=== PATIENT | female | born 1955 | race Caucasian/White ===

== ENCOUNTER 2016-12-22 11:40 | Emergency (ER) | payer MEDICARE, BC ==
[2016-12-22 11:50] VITALS: TEMP 98.4
[2016-12-22] MEDS ORDERED: KETOROLAC 30 MG/ML 1 ML VIAL IVP STA (11:54)
[2016-12-22 12:14] LABS: Basophils # (A) 0.1 k/uL (0-0.2); Basophils % (A) 1 %; CH 28.9; CHCM 33.3; Eosinophils # (A) 0.1 k/uL (0-0.7); Eosinophils % (A) 2 %; HCT 42.3 % (34.0-46.0); HDW 2.46; HGB 14.6 gm/dL (11.4-16.0); Luc # (Auto) 0.16; Luc % (Auto) 3; Lymphocytes # (A) 1.8 k/uL (1.0-4.8); Lymphocytes % (A) 29 %; MCH 30.2 pg (25.0-35.0); MCHC 34.7 g/dL (31.0-37.0); MCV 87.3 fL (80.0-100.0); Mean Platelet Volume 7.3; Monocytes # (A) 0.3 k/uL (0-1.0); Monocytes % (A) 5 %; Neutrophils # (A) 3.8 k/uL (1.3-7.7); Neutrophils % (A) 61 %; RBC 4.84 m/uL (3.80-5.40); RDW 12.8 % (11.5-15.5); WBC 6.3 k/uL (3.8-10.6)
--- NOTE | 2016-12-22 12:15 | XR ---
EXAMINATION TYPE: XR chest 2V DATE OF EXAM: 12/22/2016 COMPARISON: 06/11/2013 HISTORY: Left lateral chest pain and mid axillary pain. Stabbing in nature. TECHNIQUE: Frontal and lateral views of the chest are obtained. FINDINGS: There is no focal air space opacity, pleural effusion, or pneumothorax seen. The cardiac silhouette size is within normal limits. The osseous structures are intact. Mild degenerative marshall es of the thoracic spine are noted, similar in degree to the prior exam with partial visualization of the lumbar fusion. IMPRESSION: No acute cardiopulmonary process.
[2016-12-22 12:17] LABS: ALT 34 U/L (9-52); AST 27 U/L (14-36); Alkaline Phosphatase 89 U/L (38-126); Anion Gap 12 mmol/L; Blood Urea Nitrogen 13 mg/dL (7-17); Calcium 9.5 mg/dL (8.4-10.2); Carbon Dioxide 25 mmol/L (22-30); Chloride 107 mmol/L (98-107); Glucose 109 mg/dL (74-99); Non-African American GFR(MDRD) >60 (>60 ml/min/1.73 sqM); Potassium 4.2 mmol/L (3.5-5.1); Sodium 144 mmol/L (137-145); Total Bilirubin 0.5 mg/dL (0.2-1.3); Total Protein 7.5 g/dL (6.3-8.2)
[2016-12-22 12:23] LABS: Prothrombin Time 10.3 sec (9.0-12.0)
[2016-12-22 12:24] LABS: Partial Thromboplastin Time 22.5 sec (22.0-30.0)
--- NOTE | 2016-12-22 12:38 | ED ---
Chest Pain HPI - General Chief Complaint: Chest Pain Stated Complaint: Chest pains/nausea Time Seen by Provider: 12/22/16 11:44 Source: patient, RN notes reviewed Mode of arrival: wheelchair Limitations: no limitations - History of Present Illness Initial Comments: Is a 61-year-old female who states she had the onset of chest pain earlier this morning. She states it started about 4 AM less sided chest pain is sharp 8/10 severity not associated with any fevers chills nausea vomiting sweats she has chronic back pain she states she has not been lifting anything heavy she points to just lateral and beneath her left breast is a area pain. He does seen her when she pushes on it. MD Complaint: chest pain - Related Data Home Medications Medication Instructions Recorded Confirmed Ibuprofen [Motrin] 400 mg PO Q6HR PRN 12/22/16 12/22/16 Previous Rx's Medication Instructions Recorded Cyclobenzaprine [Flexeril] 10 mg PO TID #14 tab 12/22/16 Ibuprofen 800 mg PO Q6HR PRN #20 tablet 12/22/16 Allergies Allergy/AdvReac Type Severity Reaction Status Date / Time No Known Allergies Allergy Verified 12/22/16 12:18 Review of Systems ROS Statement: Those systems with pertinent positive or pertinent negative responses have been documented in the HPI. ROS Other: All systems not noted in ROS Statement are negative. EKG Findings - EKG Results: EKG: interpreted by SHARLA, sinus rhythm (Normal sinus rhythm rate of 86. Interval 120 QRS duration 80 QT since QTC of 464/[address]-T wave changes nonspecific anterior configuration.) Past Medical History Past Medical History: Mitral Valve Prolapse (MVP) History of Any Multi-Drug Resistant Organisms: None Reported Past Surgical History: No Surgical Hx Reported Past Psychological History: No Psychological Hx Reported Smoking Status: Never smoker Past Alcohol Use History: None Reported Past Drug Use History: None Reported General Exam - General Exam Comments Initial Comments: This is a well-developed well-nourished awake alert oriented 3 female Limitations: no limitations General appearance: alert, anxious Head exam: Present: atraumatic, normocephalic, normal inspection Eye exam: Present: normal appearance, PERRL, EOMI. Absent: scleral icterus, conjunctival injection, periorbital swelling ENT exam: Present: normal exam, mucous membranes moist Neck exam: Present: normal inspection. Absent: tenderness, meningismus, lymphadenopathy Respiratory exam: Present: normal lung sounds bilaterally, chest wall tenderness (Reproducible tenderness palpation over left lateral costal chondral margin at the level of the breast.). Absent: respiratory distress, wheezes, rales, rhonchi, stridor Cardiovascular Exam: Present: regular rate, normal rhythm, normal heart sounds. Absent: systolic murmur, diastolic murmur, rubs, gallop, clicks GI/Abdominal exam: Present: soft, normal bowel sounds. Absent: distended, tenderness, guarding, rebound, rigid Extremities exam: Present: normal inspection, full ROM, normal capillary refill. Absent: tenderness, pedal edema, joint swelling, calf tenderness Back exam: Present: normal inspection Neurological exam: Present: alert, oriented X3, CN II-XII intact Psychiatric exam: Present: normal affect, normal mood Skin exam: Present: warm, dry, intact, normal color. Absent: rash Course Vital Signs 12/22/16 12/22/16 12/22/16 11:48 11:53 12:16 Temperature 98.4 F Pulse Rate 84 75 85 Respiratory 18 18 20 Rate Blood Pressure 141/81 154/85 O2 Sat by Pulse 94 L 98 97 Oximetry Chest Pain MDM - MDM Imaging shows no acute findings. I did discuss the findings with the patient she is feeling improved the presentation is consistent with costochondritis. Patient will be discharged she'll be placed on anti-inflammatories. Disposition Clinical Impression: Chest wall syndrome, Costalchondritis Disposition: HOME SELF-CARE Condition: Good Instructions: Costochondritis (ED) Prescriptions: Cyclobenzaprine [Flexeril] 10 mg PO TID #14 tab Ibuprofen 800 mg PO Q6HR PRN #20 tablet PRN Reason: Pain Referrals: Richard Aguayo MD [Primary Care Provider] - 1-2 days
[2016-12-22 12:44] LABS: Creatine Kinase 74 U/L (30-135)
[2016-12-22 12:58] LABS: Creatine Kinase MB 1.1 ng/mL (0.0-2.4); Troponin I <0.012 ng/mL (0.000-0.034)
[2016-12-22 13:38] VITALS: BP 131/68; PULSE 77; RESP 18
== END 2016-12-22 13:37 | disposition home or self-care (01) ==
LOC: EC 11:40
DX: M94.0 Chondrocostal junction syndrome [Tietze] (principal); I34.1 Nonrheumatic mitral (valve) prolapse
CPT/HCPCS: 99285; 96374; 36415; 93005; 85379; 80053; 82550; 82553; 83735; 84484; 85025; 85610; 85730; 71020; J1885

== ENCOUNTER → 2017-09-05 | Outpatient (CLI) | payer BC, MEDICARE ==
--- NOTE | 2017-09-06 10:48 | MM ---
Reason for exam: screening (asymptomatic). Last mammogram was performed 1 year and 7 months ago. History: Patient is postmenopausal. Family history of breast cancer in maternal grandmother and breast cancer in sister at age 53. Benign US right guided VAD of the right breast, May 07, 2010. Took hormonal contraceptives beginning at age 22. Physical Findings: A clinical breast exam by your physician is recommended on an annual basis and results should be correlated with mammographic findings. MG 3D Screening Mammo W/Cad Bilateral CC and MLO view(s) were taken. Prior study comparison: February 20, 2016, bilateral MG 3d screening mammo w/cad. February 10, 2015, bilateral MG screening mammo w CAD. The breast tissue is heterogeneously dense. This may lower the sensitivity of mammography. No suspicious abnormality. Inferior right breast asymmetry appears stable from 2014. No significant changes when compared with prior studies. ASSESSMENT: Benign, BI-RAD 2 RECOMMENDATION: Routine screening mammogram of both breasts in 1 year.
== END | disposition home or self-care (01) ==
LOC: RADMAMWWP 12:19
PROVIDERS: ATTEND Obstetrics & Gynecology
DX: Z12.31 Encounter for screening mammogram for malignant neoplasm of breast (principal)
CPT/HCPCS: 77063; 77067

== ENCOUNTER 2017-09-27 12:28 | Day surgery (SDC) | payer BC, MEDICARE ==
[2017-09-23 11:36] VITALS: BMI 29.9
[~2017-09-27 12:28] MED LIST: LACTATED RINGERS 1,000 ML IV SCH
[2017-09-27 12:59] VITALS: TEMP 97.2
[2017-09-27] MEDS ORDERED: PROPOFOL 10 MG/ML 20 ML VIAL IV ONE (14:00)
--- NOTE | 2017-09-27 14:31 | P.PCN ---
Date of Procedure: 09/27/17 Procedure(s) Performed: Procedure: Total colonoscopy. Preoperative diagnosis: Screening for neoplasia. Postoperative diagnosis: Sigmoid diverticulosis with no evidence of acute diverticulitis, strictures, polyps or cancer. Preparation: HalfLytely prep. Sedation: Was provided by anesthesia. Brief clinical history: The patient is a 62-year-old female who is scheduled for this evaluation for screening for neoplasia. She had a prior exam in 2001. She has no abdominal complaints, bleeding or anemia. Procedure: With the patient on her left lateral decubitus position and after informed consent and adequate sedation, the perianal area was inspected and it did not show any fissures or fistulas. There were no masses felt on digital rectal examination. The Olympus CF Q160 L videocolonoscope was then inserted in the rectum in the usual fashion and advanced without difficulty in the sigmoid and then all the way to the cecum. There was multiple diverticular orifices seen scattered in the sigmoid with no evidence of acute diverticulitis or strictures. No polyps or tumors were seen. The mucosa appeared healthy. I retroflexed the endoscope in the rectum before the endoscope was withdrawn. The patient tolerated the procedure well. Plan: The patient was reassured. Discussed dietary measures. She will follow- up with you as planned and I recommended repeat exam in 10 years.
[2017-09-27 14:37] VITALS: RESP 20
[2017-09-27 15:02] VITALS: BP 108/67; PULSE 70
== END 2017-09-27 15:22 | disposition home or self-care (01) ==
LOC: ORWHC2ENDO 12:28
DX: Z12.11 Encounter for screening for malignant neoplasm of colon (principal); I34.1 Nonrheumatic mitral (valve) prolapse; K57.30 Diverticulosis of large intestine without perforation or abscess without bleeding
CPT/HCPCS: J2704; G0121

== ENCOUNTER → 2018-09-08 | Outpatient (CLI) | payer BC, MEDICARE ==
--- NOTE | 2018-09-12 13:49 | MM ---
Reason for exam: screening (asymptomatic). Last mammogram was performed 1 year ago. History: Patient is postmenopausal. Family history of breast cancer in maternal grandmother and breast cancer in sister at age 53. Benign US right guided VAD of the right breast, May 07, 2010. Took hormonal contraceptives beginning at age 22. Physical Findings: A clinical breast exam by your physician is recommended on an annual basis and results should be correlated with mammographic findings. MG 3D Screening Mammo W/Cad Bilateral CC and MLO view(s) were taken. Prior study comparison: September 05, 2017, bilateral MG 3d screening mammo w/cad. February 20, 2016, bilateral MG 3d screening mammo w/cad. The breast tissue is heterogeneously dense. This may lower the sensitivity of mammography. Previous mammotome biopsy in the right breast. No significant changes when compared with prior studies. ASSESSMENT: Benign, BI-RAD 2 RECOMMENDATION: Routine screening mammogram of both breasts in 1 year.
== END | disposition home or self-care (01) ==
LOC: RADMAMWWP 08:07
PROVIDERS: ATTEND Obstetrics & Gynecology
DX: Z12.31 Encounter for screening mammogram for malignant neoplasm of breast (principal); Z80.3 Family history of malignant neoplasm of breast
CPT/HCPCS: 77063; 77067

== ENCOUNTER 2019-02-13 17:31 | Observation (INO) | payer MEDICARE, BC ==
[2019-02-13] MEDS ORDERED: ASPIRIN 81 MG PO STA (18:30)
[2019-02-13] MEDS ORDERED: ACETAMINOPHEN TAB 325 MG TAB PO STA (18:42)
--- NOTE | 2019-02-13 18:43 | ED ---
Chest Pain HPI - General Chief Complaint: Chest Pain Stated Complaint: CHEST PAIN Time Seen by Provider: 02/13/19 18:30 Source: patient, RN notes reviewed Mode of arrival: ambulatory Limitations: no limitations - History of Present Illness Initial Comments: 64-year-old female presents emergency Department chief complaint chest pain. Patient states symptoms started around 2:00 this afternoon. Patient states started left-sided or chest pain she had some left arm numbness. Patient also complains of a headache and left sided neck pain at this time. Patient states that she forgot her brother today states that she is very stressed. She denies any prior cardiac disease including hypertension, hyperlipidemia diabetes any lung disease. Patient has strong family cardiac history. Patient has Augmentin nausea vomiting. Patient was referred to the emergency Department from urgent care. - Related Data Home Medications Medication Instructions Recorded Confirmed Ascorbic Acid [Vitamin C] 500 mg PO HS 02/13/19 02/13/19 Cholecalciferol [Vitamin D3 (25 1,000 unit PO HS 02/13/19 02/13/19 Mcg = 1000 Iu)] Cider Vinegar [Apple Cider Vinegar] 600 mg PO HS 02/13/19 02/13/19 Magnesium Oxide [Dyer] 500 mg PO HS 02/13/19 02/13/19 Nmn Pure 1 tab PO HS 02/13/19 02/13/19 [place]-3 Fatty Acids [[place]-3] 1,000 mg PO HS 02/13/19 02/13/19 Phytonadione [Vitamin K] 5 mg PO HS 02/13/19 02/13/19 Potassium 99 mg PO HS 02/13/19 02/13/19 Protandim 1 tab PO HS 02/13/19 02/13/19 Resveratrol 100 mg PO HS 02/13/19 02/13/19 Turmeric Root Extract [Turmeric] 500 mg PO HS 02/13/19 02/13/19 Vitamin B Complex 1 cap PO HS 02/13/19 02/13/19 Vitamin E 100 unit PO HS 02/13/19 02/13/19 Allergies Allergy/AdvReac Type Severity Reaction Status Date / Time No Known Allergies Allergy Verified 02/13/19 19:31 Review of Systems ROS Statement: Those systems with pertinent positive or pertinent negative responses have been documented in the HPI. ROS Other: All systems not noted in ROS Statement are negative. Past Medical History Past Medical History: Mitral Valve Prolapse (MVP) History of Any Multi-Drug Resistant Organisms: None Reported Past Surgical History: Back Surgery Additional Past Surgical History / Comment(s): OVARIAN CYSTECTOMY. LT WRIST CYSTECTOMY. COLONOSCOPY. BILAT CATARACTS REMOVED Past Anesthesia/Blood Transfusion Reactions: No Reported Reaction Past Psychological History: No Psychological Hx Reported Smoking Status: Never smoker Past Alcohol Use History: Rare Past Drug Use History: None Reported - Past Family History Sister(s) Family Medical History: Cancer General Exam Limitations: no limitations General appearance: alert, in no apparent distress Head exam: Present: atraumatic, normocephalic, normal inspection Eye exam: Present: normal appearance, PERRL, EOMI. Absent: scleral icterus, conjunctival injection, periorbital swelling ENT exam: Present: normal exam, normal oropharynx, mucous membranes moist Neck exam: Present: normal inspection, full ROM. Absent: tenderness, meningismus, lymphadenopathy Respiratory exam: Present: normal lung sounds bilaterally. Absent: respiratory distress, wheezes, rales, rhonchi, stridor Cardiovascular Exam: Present: regular rate, normal rhythm, normal heart sounds. Absent: systolic murmur, diastolic murmur, rubs, gallop, clicks Back exam: Absent: CVA tenderness (R), CVA tenderness (L) Neurological exam: Present: alert, oriented X3 Skin exam: Present: warm, dry, intact, normal color. Absent: rash Course Vital Signs 02/13/19 17:39 Temperature 98.7 F Pulse Rate 85 Respiratory 17 Rate Blood Pressure 148/88 O2 Sat by Pulse 98 Oximetry Chest Pain MDM - [facility] Laboratory unremarkable at this time. Patient states is consistent with cardiac disease. Patient will be admitted for cardiology evaluation, repeat troponin, heparin. Disposition Clinical Impression: Chest pain Disposition: ADMITTED IP TO THIS HOSP Condition: Fair Referrals: Richard Aguayo MD [Primary Care Provider] - 1-2 days
[2019-02-13 18:50] LABS: Basophils # (A) 0.1 k/uL (0-0.2); Basophils % (A) 1 %; Eosinophils # (A) 0.1 k/uL (0-0.7); Eosinophils % (A) 1 %; HCT 40.9 % (34.0-46.0); HGB 13.4 gm/dL (11.4-16.0); Lymphocytes # (A) 1.7 k/uL (1.0-4.8); Lymphocytes % (A) 22 %; MCH 30.3 pg (25.0-35.0); MCHC 32.8 g/dL (31.0-37.0); MCV 92.1 fL (80.0-100.0); Mean Platelet Volume 7.2; Monocytes # (A) 0.3 k/uL (0-1.0); Monocytes % (A) 4 %; Neutrophils # (A) 5.3 k/uL (1.3-7.7); Neutrophils % (A) 70 %; Platelet Count 234 k/uL (150-450); RBC 4.44 m/uL (3.80-5.40); RDW 13.2 % (11.5-15.5); WBC 7.6 k/uL (3.8-10.6)
[2019-02-13 19:08] LABS: ALT 26 U/L (9-52); AST 22 U/L (14-36); African American GFR (CKD) >90 (>60 ml/min/1.73 sqM); Albumin 4.4 g/dL (3.5-5.0); Alkaline Phosphatase 89 U/L (38-126); Anion Gap 9 mmol/L; Blood Urea Nitrogen 19 mg/dL (7-17); Calcium 9.5 mg/dL (8.4-10.2); Carbon Dioxide 24 mmol/L (22-30); Chloride 108 mmol/L (98-107); Glucose 102 mg/dL (74-99); Non-African American GFR(CKD) >90 (>60 ml/min/1.73 sqM); Potassium 4.2 mmol/L (3.5-5.1); Sodium 141 mmol/L (137-145); Total Bilirubin 0.3 mg/dL (0.2-1.3); Total Protein 7.2 g/dL (6.3-8.2)
--- NOTE | 2019-02-13 20:46 | XR ---
EXAMINATION TYPE: XR chest 2V DATE OF EXAM: 02/13/2019 COMPARISON: 12/22/2016 HISTORY: Left side pain TECHNIQUE: Frontal and lateral views of the chest are obtained. FINDINGS: Heart and mediastinum are normal. Lungs are clear. Diaphragm is normal. Bony thorax appear s normal. There are chest leads. IMPRESSION: Normal chest. No change.
[2019-02-13] MEDS ORDERED: NITROGLYCERIN SL TABS 0.4 MG TAB SUBLINGUAL PRN (21:05)
[2019-02-13] MEDS ORDERED: HEPARIN SODIUM,PORCINE 5,000 UNIT/ML 1 ML VIAL IV ONE (21:05)
[2019-02-13] MEDS ORDERED: HEPARIN SOD,PORK IN 0.45% NACL 25,000 UNIT in 0.45% NACL 1 250ML.BAG IV SCH (21:15)
[2019-02-13] MEDS ORDERED: MORPHINE SULFATE 4 MG/ML SYRINGE IVP STA (21:38)
[2019-02-13] MEDS ORDERED: ONDANSETRON 4 MG/2 ML VIAL IVP STA (21:38)
[2019-02-13 22:09] LABS: INR 0.9 (<1.2); Partial Thromboplastin Time 22.1 sec (22.0-30.0); Prothrombin Time 9.5 sec (9.0-12.0)
[2019-02-13] MEDS ORDERED: ONDANSETRON 4 MG/2 ML VIAL IVP PRN (22:39)
[2019-02-14 05:55] LABS: Mean Platelet Volume 6.3; Platelet Count 228 k/uL (150-450)
[2019-02-14 06:05] LABS: Cholesterol 193 mg/dL (<200); HDL Cholesterol 51 mg/dL (40-60); LDL Cholesterol,Calculated 122 mg/dL (0-99); Triglycerides 102 mg/dL (<150)
[2019-02-14 07:24] VITALS: BP 112/78; PULSE 71; RESP 16; TEMP 98
[2019-02-14] MEDS ORDERED: ASPIRIN 325 MG TAB PO SCH (09:00)
--- NOTE | 2019-02-14 09:42 | P.CRDCN ---
History of Present Illness History of present illness: This is a pleasant 64-year-old female with no significant previous past medical history. She denies prior history of coronary artery disease, hypertension, dyslipidemia or diabetes mellitus. 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 We have been asked to see her in consultation secondary to chest discomfort. She states yesterday afternoon she heard some bad news from a family member and shortly thereafter she developed a tight sensation in the left precordial region with radiation down the left arm and into the left neck. She denies associated shortness of breath, dizziness, nausea, vomiting, diaphoresis or palpitations. She checked her blood pressure at home and it was quite elevated around 180 systolic. She then started having a headache. This all started around 1430. She came to the hospital with ongoing chest discomfort that slowly started to subside on its own around 8 PM. She is seen and examined resting comfortably in bed laying flat in no acute distress. She still feels a vague tight sensation in the left preco rdial region however her arm discomfort, neck discomfort and headache has subsided. EKG reveals sinus mechanism with no acute ST or T wave abnormalities noted. Chest x-ray is negative for an acute cardiopulmonary process. Laboratory data reviewed, cardiac enzymes negative 3, CBC unremarkable, sodium 141, potassium 4.2, creatinine 0.61, LDL 122. She takes no daily cardiac medications. At the time of my exam: CONSTITUTIONAL: Denies fever. Denies chills. EYES: Denies blurred vision. Denies vision changes. Denies eye pain. EARS, NOSE, MOUTH & THROAT: Denies headache. Denies sore throat. Denies ear pain. CARDIOVASCULAR: Denies chest pain. Denies shortness of breath. Denies orthopnea. Denies PND. Denies palpitations. RESPIRATORY: Denies cough. GASTROINTESTINAL: Denies abdominal pain. Denies diarrhea. Denies constipation. Denies nausea. Denies vomiting. MUSCULOSKELETAL: Denies myalgias. INTEGUMENTARY: Denies pruitis. Denies rash. NEUROLOGIC: Denies numbness. Denies tingling. Denies weakness. PSYCHIATRIC: Denies anxiety. Denies depression. ENDOCRINE: Denies fatigue. Denies weight change. Denies polydipsia. Denies polyurina. GENITOURINARY: Denies burning, hematuria or urgency with micturation. HEMATOLOGIC: Denies history of anemia. Denies bleeding. Blood pressure 112/78 heart rate 71 afebrile maintaining oxygen saturation on room air GENERAL: This is a 64-year-old female in no apparent distress at the time of my examination. HEENT: Head is atraumatic, normocephalic. Pupils are equal, round. Sclerae anicteric. Conjunctivae are clear. Mucous membranes of the mouth are moist. Neck is supple. There is no jugular venous distention. No carotid bruit is heard. LUNGS: Clear to auscultation no wheezes, rales or rhonchi. No chest wall tenderness is noted on palpation or with deep breathing. HEART: Regular rate and rhythm without murmurs, rubs or gallops. S1 and S2 heard . ABDOMEN: Soft, nontender. Bowel sounds are heard. No organomegaly noted. EXTREMITIES: No evidence of peripheral edema and no calf tenderness noted. VASCULAR: Radial and dorsalis pedis pulses palpated, no evidence of clubbing. NEUROLOGIC: Patient is awake, alert and oriented x3. ASSESSMENT Chest pain. An acute coronary event has been ruled out. Transient hypertension Dyslipidemia Obesity, BMI 29 Family history of premature coronary artery disease in brother PLAN An acute coronary event has been ruled out with no EKG evidence of ischemia and negative cardiac enzymes. Obtain 2-D echocardiogram and Doppler study to assess cardiac structure and function. If echocardiogram is normal we will proceed with a stress echocardiogram to assess for stress-induced ischemia. Stress test is normal she may be discharged from a cardiac perspective. Recommend lifestyle modifications for lowering of LDL cholesterol. Thank you kindly for this consultation. Nurse Practitioner note has been reviewed, I agree with a documented findings and plan of care. Patient was seen and examined. Past Medical History Past Medical History: Mitral Valve Prolapse (MVP) History of Any Multi-Drug Resistant Organisms: None Reported Past Surgical History: Back Surgery Additional Past Surgical History / Comment(s): OVARIAN CYSTECTOMY. LT WRIST CYSTECTOMY. COLONOSCOPY. BILAT CATARACTS REMOVED with lens. spinal fusion Past Anesthesia/Blood Transfusion Reactions: No Reported Reaction Past Psychological History: No Psychological Hx Reported Smoking Status: Never smoker Past Alcohol Use History: Rare Past Drug Use History: None Reported - Past Family History Sister(s) Family Medical History: Cancer Medications and Allergies Home Medications Medication Instructions Recorded Confirmed Type Ascorbic Acid [Vitamin C] 500 mg PO HS 02/13/19 02/13/19 History Cholecalciferol [Vitamin D3 (25 1,000 unit PO HS 02/13/19 02/13/19 History Mcg = 1000 Iu)] Cider Vinegar [Apple Cider Vinegar] 600 mg PO HS 02/13/19 02/13/19 History Magnesium Oxide [[place]yer] 500 mg PO HS 02/13/19 02/13/19 History Nmn Pure 1 tab PO HS 02/13/19 02/13/19 History [place]-3 Fatty Acids [[place]-3] 1,000 mg PO HS 02/13/19 02/13/19 History Phytonadione [Vitamin K] 5 mg PO HS 02/13/19 02/13/19 History Potassium 99 mg PO HS 02/13/19 02/13/19 History Protandim 1 tab PO HS 02/13/19 02/13/19 History Resveratrol 100 mg PO HS 02/13/19 02/13/19 History Turmeric Root Extract [Turmeric] 500 mg PO HS 02/13/19 02/13/19 History Vitamin B Complex 1 cap PO HS 02/13/19 02/13/19 History Vitamin E 100 unit PO HS 02/13/19 02/13/19 History Allergies Allergy/AdvReac Type Severity Reaction Status Date / Time No Known Allergies Allergy Verified 02/13/19 19:31 Physical Exam Vitals: Vital Signs Temp Pulse Pulse Resp BP BP Pulse Ox 02/14/19 07:23 98 F 71 16 112/78 99 02/14/19 04:19 80 18 127/64 96 02/13/19 23:16 97.6 F 77 18 155/80 95 02/13/19 22:30 78 21 152/94 02/13/19 21:40 70 18 128/79 02/13/19 20:20 68 18 130/82 96 02/13/19 19:40 68 20 165/93 97 02/13/19 17:39 98.7 F 85 17 148/88 98 Intake and Output 02/13/19 02/14/19 02/14/19 22:59 06:59 14:59 Other: # Voids 1 Weight 79.832 kg Results 02/14/19 05:34 02/13/19 18:03 Cardiac Enzymes 02/13/19 02/13/1902/13/19 Range/Units 18:03 18:03 21:00 AST 22 (14-36) U/L Troponin I <0.012 <0.012 (0.000-0.034) ng/mL 02/14/19 Range/Units 05:34 AST (14-36) U/L Troponin I <0.012 (0.000-0.034) ng/mL Coagulation 02/13/19 02/14/19 02/14/19 Range/Units 21:00 03:57 05:34 PT 9.5 (9.0-12.0) sec APTT 22.1 75.0 H 67.4 H (22.0-30.0) sec Lipids 02/14/19 Range/Units 05:34 Triglycerides 102 (<150) mg/dL Cholesterol 193 (<200) mg/dL HDL Cholesterol 51 (40-60) mg/dL CBC 02/13/19 02/14/19 Range/Units 18:03 05:34 WBC 7.6 (3.8-10.6) k/uL RBC 4.44 (3.80-5.40) m/uL Hgb 13.4 (11.4-16.0) gm/dL Hct 40.9 (34.0-46.0) % Plt Count 234 228 (150-450) k/uL Comprehensive Metabolic Panel 02/13/19 Range/Units 18:03 Sodium 141 (137-145) mmol/L Potassium 4.2 (3.5-5.1) mmol/L Chloride 108 H (98-107) mmol/L Carbon Dioxide 24 (22-30) mmol/L BUN 19 H (7-17) mg/dL Creatinine 0.61 (0.52-1.04) mg/dL Glucose 102 H (74-99) mg/dL Calcium 9.5 (8.4-10.2) mg/dL AST 22 (14-36) U/L ALT 26 (9-52) U/L Alkaline Phosphatase 89 (38-126) U/L Total Protein 7.2 (6.3-8.2) g/dL Albumin 4.4 (3.5-5.0) g/dL Current Medications Generic Name Dose Route Start Last Admin Trade Name Freq PRN Reason Stop Dose Admin Ascorbic Acid 500 mg 02/14/19 21:00 Vitamin C PO HS [facility] Aspirin 325 mg 02/14/19 09:00 Aspirin PO DAILY [facility] Cholecalciferol 1,000 unit 02/14/19 21:00 Vitamin D3 (25 Mcg = 1000 Iu) PO HS DESIRAE Heparin Sodium/Sodium Chloride 250 mls @ 9.58 mls/hr 02/13/19 21:15 02/13/19 22:23 25,000 unit/ Sodium Chloride IV 12 units/kg/hr .Q24H DESIRAE 9.58 mls/hr Administration Protocol 12 UNITS/KG/HR Nitroglycerin 0.4 mg 02/13/19 21:05 Nitrostat SUBLINGUAL Q5M PRN Chest Pain Ondansetron HCl 4 mg 02/13/19 22:39 Zofran IVP Q6HR PRN Nausea And Vomiting Intake and Output 02/13/19 02/14/19 02/14/19 22:59 06:59 14:59 Other: # Voids 1 Weight 79.832 kg 02/14/19 05:34 02/13/19 18:03
--- NOTE | 2019-02-14 09:53 | ECHOF ---
Referral Reason:chest pain MEASUREMENTS -------- HEIGHT: 165.1 cm WEIGHT: 79.8 kg BP: 127/64 RVIDd: 2.7 cm (< 3.3) IVSd: 1.0 cm (0.6 - 1.1) LVIDd: 4.3 cm (3.9 - 5.3) LVPWd: 1.0 cm (0.6 - 1.1) IVSs: 1.7 cm LVIDs: 2.9 cm LVPWs: 1.5 cm LA Diam: 3.3 cm (2.7 - 3.8) LAESV Index (A-L): 23.40 ml/m Ao Diam: 2.8 cm (2.0 - 3.7) AV Cusp: 2.4 cm (1.5 - 2.6) MV EXCURSION: 13.536 mm (> 18.000) MV EF SLOPE: 86 mm/s (70 - 150) EPSS: 0.3 cm MV E Toño: 0.94 m/s MV DecT: 202 ms MV A Toño: 0.67 m/s MV E/A Ratio: 1.41 RAP: 5.00 mmHg RVSP: 23.58 mmHg TAPSE: 19.20 mm FINDINGS -------- Sinus rhythm. This was a technically good study. The left ventricular size is normal. Left ventricular wall thickness is normal. Overall left vent ricular systolic function is normal with, an EF between 60 - 65 %. The diastolic filling pattern is normal for the age of the patient 10.27. The right ventricle is normal in size. Normal LA size by volume 22+/-6 ml/m2. The right atrium is normal in size. Interatrial and interventricular septum intact. Aortic valve is trileaflet and is mildly thickened. Mild mitral regurgitation is present. Mild tricuspid regurgitation present. Right ventricular systolic pressure is normal at < 35 mmHg. Trace/mild (physiologic) pulmonic regurgitation. The aortic root size is normal. Normal inferior vena cava with normal inspiratory collapse consistent with estimated right atrial pre ssure of 5 mmHg. There is no pericardial effusion. CONCLUSIONS -------- 1. Sinus rhythm. 2. This was a technically good study. 3. The left ventricular size is normal. 4. Left ventricular wall thickness is normal. 5. Overall left ventricular systolic function is normal with, an EF between 60 - 65 %. 6. The diastolic filling pattern is normal for the age of the patient 10.27 7. The right ventricle is normal in size. 8. Normal LA size by volume 22+/-6 ml/m2. 9. The right atrium is normal in size. 10. Interatrial and interventricular septum intact. 11. Aortic valve is trileaflet and is mildly thickened. 12. Mild mitral regurgitation is present. 13. Mild tricuspid regurgitation present. 14. Right ventricular systolic pressure is normal at < 35 mmHg. 15. Trace/mild (physiologic) pulmonic regurgitation. 16. The aortic root size is normal. 17. Normal inferior vena cava with normal inspiratory collapse consistent with estimated right atrial pressure of 5 mmHg. 18. There is no pericardial effusion. NUCLEAR LICENSING ENGINEER: Yasmine Corbett RDCS
--- NOTE | 2019-02-14 12:50 | P.STRESS ---
- Stress Test Note Stress Test Results/Findings: Exam Performed: stress echo exercise Exam Date: 02/14/19 Reason for Exam: CP Height: 5 ft 5 in Weight: 79.832 kg Protocol: STRESS ECHO Stage: 3 Duration of Exercise: 6:15 Resting Heart Rate: 90 Resting Blood Pressure: 138/68 Maximum Achieved Heart Rate: 144 Maximum Achieved Blood Pressure: 194/71 85% PMHR: 134 100% PMHR: 158 METS: 7.5 Technologist Comment: Stress Test Results/Findings: This is a 64-year-old female being evaluated for symptoms of chest pain and palpitations. Stress data: Baseline EKG showed a sinus rhythm with normal MD interval and QRS duration. Blood pressure at rest is 138/64, pulse rate of 90. Patient walked on the Saroj protocol for 6 minutes and 15 seconds achieving a maximum heart rate of 144 with a blood pressure of 1 9471. EKGs taken during and after the x- ray did not reveal any significant changes from the baseline. Echo data: Baseline echo images show normal wall motion and thickening. Exercise echo images showed augmentation of the wall motion and thickening in all segments. Final impression: #1. Negative stress test #2. Negative stress echo.
[2019-02-14] MEDS ORDERED: VITAMIN E 100 UNIT PO SCH (21:00)
[2019-02-14] MEDS ORDERED: NON FORMULARY DRUG (Potassium [Potassium] 99 MG) PO SCH (21:00)
[2019-02-14] MEDS ORDERED: NON FORMULARY DRUG (Vitamin B Complex [Vitamin B Complex] 1 CAP) PO SCH (21:00)
[2019-02-14] MEDS ORDERED: PROTANDIM PO SCH (21:00)
[2019-02-14] MEDS ORDERED: RESVERATROL 100 MG PO SCH (21:00)
[2019-02-14] MEDS ORDERED: CHOLECALCIFEROL 1,000 UNIT TAB PO SCH (21:00)
[2019-02-14] MEDS ORDERED: NON FORMULARY DRUG (Omega-3 Fatty Acids [Omega-3] 1,000 MG) PO SCH (21:00)
[2019-02-14] MEDS ORDERED: PHYTONADIONE 5 MG PO SCH (21:00)
[2019-02-14] MEDS ORDERED: ASCORBIC ACID 500 MG TAB PO SCH (21:00)
[2019-02-14] MEDS ORDERED: NON FORMULARY DRUG (Turmeric Root Extract [Turmeric] 500 MG) PO SCH (21:00)
[2019-02-14] MEDS ORDERED: NON FORMULARY DRUG (Magnesium Oxide [Phillips] 500 MG) PO SCH (21:00)
[2019-02-14] MEDS ORDERED: CIDER VINEGAR PO SCH (21:00)
[2019-02-14] MEDS ORDERED: [UNRECOGNIZED DRUG - OTHER] PO SCH (21:00)
--- NOTE | 2019-02-14 22:35 | P.HPIM ---
History of Present Illness H&P Date: 02/14/19 Chief Complaint: chest pain History of presenting complaint: This is a very pleasant 64-year-old patient of Dr. Aguayo. History patient on the nose and a brother, with suicide in [place]. The new straightly alarmed her. Started having chest pain going up to the arm. Patient started hyperventilating. Feels very anxious. came home from work and took a blood pressure was 170 systolic. Does no dizziness no lightheadedness no perspiration. No prior cardiac history. Patient is rather active. No prior cardiac history. Review of systems: GEN.: None EYES: None HEENT: None NECK: None RESPIRATORY: None CARDIOVASCULAR: As above GASTROINTESTINAL: None GENITOURINARY: None MUSCULOSKELETAL: Chronic back pain and LYMPHATICS: None HEMATOLOGICAL: None PSYCHIATRY: Anxious NEUROLOGICAL: None Social history: Does not smoke. Alcohol occasionally. Lives with her . Physical examination: VITAL SIGNS: 98.7, 85, 17, 140-88, 98% room air GENERAL: Average built, sitting up, but anxious. EYES: Pupils equal. Conjunctiva normal. HEENT: External appearance of nose and ears normal, oral cavity grossly normal. NECK: JVD not raised; masses not palpable. HEART: First and second heart sounds are normal; no edema. LUNGS: Respiratory rate normal; clear to auscultation. ABDOMEN: Soft, nontender, liver spleen not palpable, no masses palpable. PSYCH: [Alert and oriented x3; mood and affect anxious l. NEUROLOGICAL: Cranial nerves grossly intact; no facial asymmetry, power and sensation grossly intact. LYMPHATICS: No lymph nodes palpable in the axilla and neck INVESTIGATIONS, reviewed in the clinical context: White count 7.6 hemoglobin 13.4 potassium 4.2 creatinine 0.61 Troponin I 3 negative EKG tracing personally reviewed by me-sinus rhythm Chest x-ray film-personally reviewed by me shows normal lung alicea Assessment -Patient had anterior chest pain what appeared to be panic attack after hearing the message of his brother committed suicide. -Chronic low back pain patient's had previous surgery -Situational anxiety Plan: Cartilage was consulted. They did order a stress test. Patient was reassured. Past Medical History Past Medical History: Mitral Valve Prolapse (MVP) History of Any Multi-Drug Resistant Organisms: None Reported Past Surgical History: Back Surgery Additional Past Surgical History / Comment(s): OVARIAN CYSTECTOMY. LT WRIST CYSTECTOMY. COLONOSCOPY. BILAT CATARACTS REMOVED with lens. spinal fusion Past Anesthesia/Blood Transfusion Reactions: No Reported Reaction Past Psychological History: No Psychological Hx Reported Smoking Status: Never smoker Past Alcohol Use History: Rare Past Drug Use History: None Reported - Past Family History Sister(s) Family Medical History: Cancer Medications and Allergies Home Medications Medication Instructions Recorded Confirmed Type Ascorbic Acid [Vitamin C] 500 mg PO HS 02/13/19 02/13/19 History Cholecalciferol [Vitamin D3 (25 1,000 unit PO HS 02/13/19 02/13/19 History Mcg = 1000 Iu)] Cider Vinegar [Apple Cider Vinegar] 600 mg PO HS 02/13/19 02/13/19 History Magnesium Oxide [Dyer] 500 mg PO HS 02/13/19 02/13/19 History Nmn Pure 1 tab PO HS 02/13/19 02/13/19 History [place]-3 Fatty Acids [[place]-3] 1,000 mg PO HS 02/13/19 02/13/19 History Phytonadione [Vitamin K] 5 mg PO HS 02/13/19 02/13/19 History Potassium 99 mg PO HS 02/13/19 02/13/19 History Protandim 1 tab PO HS 02/13/19 02/13/19 History Resveratrol 100 mg PO HS 02/13/19 02/13/19 History Turmeric Root Extract [Turmeric] 500 mg PO HS 02/13/19 02/13/19 History Vitamin B Complex 1 cap PO HS 02/13/19 02/13/19 History Vitamin E 100 unit PO HS 02/13/19 02/13/19 History Aspirin 81 mg PO DAILY #1 chewable 02/14/19 Rx Allergies Allergy/AdvReac Type Severity Reaction Status Date / Time No Known Allergies Allergy Verified 02/13/19 19:31 Physical Exam Vitals: Vital Signs Temp Pulse Pulse Resp BP BP Pulse Ox 02/14/19 08:00 71 16 02/14/19 07:23 98 F 71 16 112/78 99 02/14/19 04:19 80 18 127/64 96 02/13/19 23:16 97.6 F 77 18 155/80 95 02/13/19 22:30 78 21 152/94 02/13/19 21:40 70 18 128/79 02/13/19 20:20 68 18 130/82 96 02/13/19 19:40 68 20 165/93 97 02/13/19 17:39 98.7 F 85 17 148/88 98 Intake and Output 02/13/19 02/14/19 02/14/19 22:59 06:59 14:59 Other: Voiding Method Toilet # Voids 1 Weight 79.832 kg Results CBC & Chem 7: 02/14/19 05:34 02/13/19 18:03 Labs: Abnormal Lab Results - Last 24 Hours (Table) 02/13/19 02/14/19 02/14/19 Range/Units 18:03 03:57 05:34 APTT 75.0 H (22.0-30.0) sec Chloride 108 H (98-107) mmol/L BUN 19 H (7-17) mg/dL Glucose 102 H (74-99) mg/dL LDL Cholesterol, Calc 122 H (0-99) mg/dL 02/14/19 Range/Units 05:34 APTT 67.4 H (22.0-30.0) sec Chloride (98-107) mmol/L BUN (7-17) mg/dL Glucose (74-99) mg/dL LDL Cholesterol, Calc (0-99) mg/dL Thrombosis Risk Factor Assmnt - Choose All That Apply Each Risk Factor Represents 2 Points: Age 61-74 years Thrombosis Risk Factor Assessment Total Risk Factor Score: 2 Thrombosis Risk Factor Assessment Level: Low Risk
--- NOTE | 2019-02-14 22:38 | P.DS ---
Providers Date of admission: 02/13/19 21:44 Expected date of discharge: 02/14/19 Attending physician: Abner Patterson Consults: 02/13/19 21:05 Consult Physician Urgent Consulting Provider: Lars Hollis Consult Reason/Comments: chest pain Do you want consulting provider notified?: Yes, Notify in am Primary care physician: Javy Aguayo [facility] Course: Chief Complaint: chest pain Hospital course: This is a very pleasant 64-year-old patient of Dr. Aguayo. History patient on the nose and a brother, with suicide in [place]. The new straightly alarmed her. Started having chest pain going up to the arm. Patient started hyperventilating. Feels very anxious. came home from work and took a blood pressure was 170 systolic. Does no dizziness no lightheadedness no perspiration. No prior cardiac history. Patient is rather active. No prior cardiac history. troponins were negative. EKG was unremarkable. Stress echocardiogram was negative.2-D echo showed EF of 60-65%. Care was discussed with the patient and . Patient reassured. Consultation: Dr. Joy from cardiology Physical examination: VITAL SIGNS: 98, 71, 16, 11 2/78, 99% room air GENERAL: Average built, sitting up, but anxious. EYES: Pupils equal. Conjunctiva normal. HEENT: External appearance of nose and ears normal, oral cavity grossly normal. NECK: JVD not raised; masses not palpable. HEART: First and second heart sounds are normal; no edema. LUNGS: Respiratory rate normal; clear to auscultation. ABDOMEN: Soft, nontender, liver spleen not palpable, no masses palpable. PSYCH: [Alert and oriented x3; mood and affect anxious l. INVESTIGATIONS, reviewed in the clinical context: White count 7.6 hemoglobin 13.4 potassium 4.2 creatinine 0.61 Troponin I 3 negative EKG tracing personally reviewed by me-sinus rhythm Chest x-ray film-personally reviewed by me shows normal lung alicea 2-D echo, stress echocardiogram discharge diagnosis -psychosomatic anterior chest wall pain from hearing alarming use of her brother committing suicide -Chronic low back pain patient's had previous surgery -Situational anxiety Disposition: Home Patient Condition at Discharge: Stable Plan - Discharge Summary New Discharge Prescriptions: New Aspirin 81 mg PO DAILY #1 chewable Continue Vitamin E 100 unit PO HS Vitamin B Complex 1 cap PO HS Turmeric Root Extract [Turmeric] 500 mg PO HS Protandim 1 tab PO HS Potassium 99 mg PO HS Phytonadione [Vitamin K] 5 mg PO HS [place]-3 Fatty Acids [[place]-3] 1,000 mg PO HS Magnesium Oxide [Dyer] 500 mg PO HS Cider Vinegar [Apple Cider Vinegar] 600 mg PO HS Cholecalciferol [Vitamin D3 (25 Mcg = 1000 Iu)] 1,000 unit PO HS Ascorbic Acid [Vitamin C] 500 mg PO HS Nmn Pure 1 tab PO HS Resveratrol 100 mg PO HS Discharge Medication List Ascorbic Acid [Vitamin C] 500 mg PO HS 02/13/19 [History] Cholecalciferol [Vitamin D3 (25 Mcg = 1000 Iu)] 1,000 unit PO HS 02/13/19 [History] Cider Vinegar [Apple Cider Vinegar] 600 mg PO HS 02/13/19 [History] Magnesium Oxide [Dyer] 500 mg PO HS 02/13/19 [History] Nmn Pure 1 tab PO HS 02/13/19 [History] [place]-3 Fatty Acids [[place]-3] 1,000 mg PO HS 02/13/19 [History] Phytonadione [Vitamin K] 5 mg PO HS 02/13/19 [History] Potassium 99 mg PO HS 02/13/19 [History] Protandim 1 tab PO HS 02/13/19 [History] Resveratrol 100 mg PO HS 02/13/19 [History] Turmeric Root Extract [Turmeric] 500 mg PO HS 02/13/19 [History] Vitamin B Complex 1 cap PO HS 02/13/19 [History] Vitamin E 100 unit PO HS 02/13/19 [History] Aspirin 81 mg PO DAILY #1 chewable 02/14/19 [Rx] Follow up Appointment(s)/Referral(s): Richard Aguayo MD [Primary Care Provider] - 1-2 days Activity/Diet/Wound Care/Special Instructions: low fat diet
--- NOTE | 2019-02-16 12:08 | ECHOS ---
- Stress Test Note Stress Test Results/Findings: Exam Performed: stress echo exercise Exam Date: 02/14/19 Reason for Exam: CP Height: 5 ft 5 in Weight: 79.832 kg Protocol: STRESS ECHO Stage: 3 Duration of Exercise: 6:15 Resting Heart Rate: 90 Resting Blood Pressure: 138/68 Maximum Achieved Heart Rate: 144 Maximum Achieved Blood Pressure: 194/71 85% PMHR: 134 100% PMHR: 158 METS: 7.5 Technologist Comment: Stress Test Results/Findings: This is a 64-year-old female being evaluated for symptoms of chest pain and palpitations. Stress data: Baseline EKG showed a sinus rhythm with normal MN interval and QRS duration. Blood pressure at rest is 138/64, pulse rate of 90. Patient walked on the Saroj protocol for 6 minutes and 15 seconds achieving a maximum heart rate of 144 with a blood pressure of 1 9471. EKGs taken during and after the x- ray did not reveal any significant changes from the baseline. Echo data: Baseline echo images show normal wall motion and thickening. Exercise echo images showed augmentation of the wall motion and thickening in all segments. Final impression: #1. Negative stress test #2. Negative stress echo. EMIGDIO
== END 2019-02-14 14:37 ==
LOC: EC 17:31 → 1SOBS 21:44
PROVIDERS: ADMIT Hospitalist; ATTEND Hospitalist
DX: F45.41 Pain disorder exclusively related to psychological factors (principal); F41.8 Other specified anxiety disorders; R06.4 Hyperventilation; Z63.4 Disappearance and death of family member; I34.1 Nonrheumatic mitral (valve) prolapse; E78.5 Hyperlipidemia, unspecified; R03.0 Elevated blood-pressure reading, without diagnosis of hypertension; G89.29 Other chronic pain; M54.9 Dorsalgia, unspecified; Z68.29 Body mass index [BMI] 29.0-29.9, adult; E66.9 Obesity, unspecified; Z79.899 Other long term (current) drug therapy; Z98.42 Cataract extraction status, left eye; Z98.41 Cataract extraction status, right eye; Z96.1 Presence of intraocular lens; Z98.1 Arthrodesis status; Z80.9 Family history of malignant neoplasm, unspecified; Z82.49 Family history of ischemic heart disease and other diseases of the circulatory system
CPT/HCPCS: 93005 ×2; 96366 ×2; 96365; 96375; 99285; 36415; 93306; 93351; 80061; 80053; 84484 ×2; 85025; 85049; 85610; 85730 ×2; 71046; G0378 ×2; J2270; J1644 ×2